=== PATIENT | female | born 1950 | race Caucasian/White ===

== ENCOUNTER → 2017-04-03 | Outpatient (CLI) | payer OTHER, MEDICARE | LOC: MMPC 11:11 | DX: R25.2 Cramp and spasm (principal); E78.00 Pure hypercholesterolemia, unspecified; D72.819 Decreased white blood cell count, unspecified; E55.9 Vitamin D deficiency, unspecified | CPT/HCPCS: 99213; G0463 ==

== ENCOUNTER → 2017-04-22 | Outpatient (CLI) | payer OTHER, MEDICARE ==
[2017-04-22 17:48] LABS: BASOPHILS # (AUTO) 0.04 10*3/UL; EOSINOPHILS # (AUTO) 0.09 10*3/UL; EOSINOPHILS % (AUTO) 2.3 % (0-8); HEMATOCRIT 43.5 % (37.0-47.0); LYMPHOCYTES # (AUTO) 1.22 10*3/uL; MEAN CORPUSCULAR HEMOGLOBIN 28.6 PG (27-31); MEAN CORPUSCULAR HGB CONC 32.2 g/dL (33-37); MEAN CORPUSCULAR VOLUME 88.8 FL (81-99); MEAN PLATELET VOLUME 10.3 FL (7.4-12.2); MONOCYTES # (AUTO) 0.45 10*3/UL (0.3-0.8); MONOCYTES % (AUTO) 11.3 % (5-15); NEUTROPHILS # (AUTO) 2.17 10*3/UL; NEUTROPHILS % (AUTO) 54.7 % (50-80)
[2017-04-22 17:50] LABS: PLATELET MORPHOLOGY COMMENT NORMAL MORPHOLOGY (NORM); RBC MORPHOLOGY COMMENT NORMAL MORPHOLOGY (NORM); WBC MORPHOLOGY COMMENT NORMAL MORPHOLOGY (NORM)
[2017-04-22 17:54] LABS: BILIRUBIN,URINE NEGATIVE (NEG); CLARITY,URINE CLEAR (CLEAR); COLOR,URINE YELLOW; GLUCOSE, URINE (UA) NEGATIVE (NEG); NITRATE,URINE NEGATIVE (NEG); OCCULT BLOOD,URINE NEGATIVE (NEG); PH,URINE 5.5 (5.0-8.5); PROTEIN,URINE NEGATIVE (NEG); UROBILINOGEN,URINE 0.2 mg/dL (0.2)
[2017-04-22 17:55] LABS: BLOOD UREA NITROGEN 17 mg/dL (7-22); BUN/CREATININE RATIO 21.25 (6-20); CALCIUM 9.2 mg/dL (8.7-10.7); CHOL/HDL RATIO 2.28 RATIO (0-4.0); EST GLOMERULAR FILTRATION > 60 (>60 ml/min/1.73m(2)); HDL CHOLESTEROL 78 mg/dL (40-150); SERUM ALBUMIN 4.4 g/dL (3.5-4.8); SERUM CHOLESTEROL 178 mg/dL (120-200)
[2017-04-22 18:03] LABS: BACTERIA,URINE FEW; RBC,URINE 0-1 /hpf; SQUAMOUS EPITHELIAL CELL,UR FEW; URINE SAMPLE TYPE CLEAN CATCH URINE; WBC,URINE 0-1
== END ==
LOC: LAB 09:25
DX: R25.2 Cramp and spasm (principal); E78.00 Pure hypercholesterolemia, unspecified; D72.819 Decreased white blood cell count, unspecified; E55.9 Vitamin D deficiency, unspecified
CPT/HCPCS: 80053; 80061; 81001; 82306; 84443; 85025

== ENCOUNTER → 2017-06-28 | Outpatient (CLI) | payer OTHER, MEDICARE ==
[2017-06-28 11:55] LABS: BASOPHILS # (AUTO) 0.02 10*3/UL; BASOPHILS % (AUTO) 0.2 % (0-1); EOSINOPHILS # (AUTO) 0.01 10*3/UL; EOSINOPHILS % (AUTO) 0.1 % (0-8); HEMATOCRIT 37.6 % (37.0-47.0); HEMOGLOBIN 13.1 g/dL (12.0-16.0); LYMPHOCYTES # (AUTO) 0.88 10*3/uL; MEAN CORPUSCULAR HGB CONC 34.8 g/dL (33-37); MEAN CORPUSCULAR VOLUME 86.2 FL (81-99); MEAN PLATELET VOLUME 9.7 FL (7.4-12.2); MONOCYTES # (AUTO) 0.78 10*3/UL (0.3-0.8); NEUTROPHILS # (AUTO) 6.99 10*3/UL; NEUTROPHILS % (AUTO) 80.5 % (50-80); RED BLOOD COUNT 4.36 10^6/uL (4.20-5.40)
[2017-06-28 12:03] LABS: BLOOD UREA NITROGEN 20 mg/dL (7-22); CALCIUM 9.4 mg/dL (8.7-10.7); EST GLOMERULAR FILTRATION > 60 (>60 ml/min/1.73m(2)); SERUM ALBUMIN 4.3 g/dL (3.5-4.8)
[2017-06-28 12:06] LABS: PLATELET MORPHOLOGY COMMENT NORMAL MORPHOLOGY (NORM); RBC MORPHOLOGY COMMENT NORMAL MORPHOLOGY (NORM); WBC MORPHOLOGY COMMENT NORMAL MORPHOLOGY (NORM)
--- NOTE | 2017-06-28 13:01 | DI ---
History: Abdominal pain Comparison: None Findings: Lung bases clear. Liver, gallbladder, spleen, pancreas, adrenal glands, are unremarkable. Right kidney is unremarkable. There are small fluid collections in the left renal sinus likely representing parapelvic cysts. Witho ut delayed images, I cannot exclude the less likely possibility of UPJ obstruction and subsequent pro minence of the collecting system The left ureter is normal in course and caliber. Urinary bladder is unremarkable There is aortic atherosclerosis. There is no aneurysm or dissection. There is no indication of intestinal obstruction. There are colonic diverticula. I can see no focal inflammation to indicate diverticulitis. Terminal ileum is normal in appearance. There are no gross uterine lesions. Impression: Small fluid collections in the left renal sinus likely represent parapelvic cysts. the less likely p ossibility of UPJ obstruction with subsequent mild fullness of the pelvic calyceal system cannot be e xcluded without delayed images. Note is made that the left ureter is normal in course and caliber. Th ere are no renal or ureteral calculi. Diverticulosis. No indication of diverticulitis.
== END ==
LOC: MOB LAB 11:39
PROVIDERS: ATTEND Physician Assistant Medical
DX: R10.32 Left lower quadrant pain (principal); R10.12 Left upper quadrant pain; K57.90 Diverticulosis of intestine, part unspecified, without perforation or abscess without bleeding
CPT/HCPCS: 36415; 74177; 80053; 85025; 99214; G0463